=== PATIENT | male | born 1955 | race Caucasian/White ===

== ENCOUNTER → 2019-12-07 | Outpatient (CLI) | payer OTHER, MEDICARE ==
[~2019-12-07] MED LIST: ADULT LOW DOSE81 MG PO; ASA81BEC PO; ASPIRIN EC81 M1 PO; ASPIRIN325; CARDURA XL4 MG PO; CARDURA1 MG PO; CARDURA4 MG PO; CARVEDILOL6.25 M1 PO; CHILDREN'S ASPI81 M1 PO; COREG6.25 MG PO; CRESTOR10 MG PO; EFFIENT10 MG PO; FISH OIL 1,0001 EAC8 PO; FISH OIL 1,0001 EAC9 PO; FLONASE16 GM NASAL; GLUCOPHAGE1000 MG PO; JANUMET 50-1,01 EACH PO; JANUVIA100 MG PO; LISINOPRIL-HCT1 EAC2 PO; LISINOPRIL20 MG PO; LISINOPRIL40 MG PO; PRAVASTATIN SOD80 MG PO; TRICOR145 MG PO; TRIGLIDE160 MG PO; XARELTO1 EACH PO; XARELTO15 MG PO
== END ==
LOC: SJCVCIMAG 08:37
PROVIDERS: ATTEND Internal Medicine Cardiovascular Disease
DX: I44.0 Atrioventricular block, first degree (principal); I25.10 Atherosclerotic heart disease of native coronary artery without angina pectoris; I10 Essential (primary) hypertension; E78.00 Pure hypercholesterolemia, unspecified; E78.5 Hyperlipidemia, unspecified; E11.9 Type 2 diabetes mellitus without complications; Z87.891 Personal history of nicotine dependence; Z79.82 Long term (current) use of aspirin; Z79.01 Long term (current) use of anticoagulants; Z79.899 Other long term (current) drug therapy; Z98.61 Coronary angioplasty status

== ENCOUNTER → 2019-12-11 | Outpatient (CLI) | payer OTHER, MEDICARE ==
[~2019-12-11] VITALS: Ht 175.3 cm; Wt 99.8 kg
[~2019-12-11] MED LIST changes: +METFORMIN HCL500 M3 PO
[2019-12-11 07:16] VITALS: BP 125/65
[2019-12-11 07:47] LABS: HEMATOCRIT 35.2 % (42.0-52.0); HEMOGLOBIN 11.9 gm/dL (14.0-18.0); MCH 31.2 pg (26.0-34.0); MCHC 33.8 g/dL (28.0-37.0); MCV 92.2 fL (80.0-100.0); RBC 3.82 mil/uL (4.50-6.00); RDW 13.8 % (10.5-14.5); WBC 4.4 thou/uL (4.0-11.0)
[2019-12-11 07:58] LABS: CALCIUM 9.3 mg/dL (8.5-10.1); CREATININE 1.7 mg/dL (0.7-1.3); POTASSIUM 4.3 mmol/L (3.5-5.1)
--- NOTE | 2019-12-11 13:54 | CATHLAB ---
[facility] [place] [address] INVASIVE PROCEDURE REPORT Name: ARNALDO STANFORD Room #: REG MICHELA GoldbergJean ClaudeDee DeeJean Claude#: [id number] Admission: 12/11/19 Attend Phys: Ad Cordero MD Discharge: Date of : 53 Report #: [id number] THIS REPORT FOR: cc: Andrea Toscano James A. DO Park, Jin S. MD ~ APPROVED REPORT Study performed: 12/11/2019 07:57:37 Patient Details Patient Status: Out-Patient Room #: The patient is a 64 year-old male Event Personnel Ad Cordero [employer] Heater, Tab Rapp RN RN, Kylie Mora RTR Scrub, Rukhsana Howell RTR, BRITTANY Scrub, Melissa Brian Monitor Procedures Performed Art Access - R femoral artery* Left Heart Cath w/or w/o Coronaries [id number] [facility] Hemostasis with Manual pressure 05564 Initial Mod Sed Same Phys/QHP Gr5y [id number] 02465 Mod Sed Same Phys/QHP Ea 247573 Indication Dyspnea, Positive stress test, Chest pain Risk Factors Hypercholesterolemia, Coronary Artery DiseaseHypertension, Diabetes Previous Procedures/Diagnoses Previous PCI, Previous AK Procedure Narrative The Right Groin^ was infiltrated with 1% Lidocaine subcutaneous anesthesia. A PINNACLE 4FR Sheath #[id number] sheath was inserted into the RFA^. Coronary angiography was performed using coronary diagnostic catheters. The right coronary system was accessed and visualized with a 3DRC catheter. The left coronary system was accessed and visualized with a JL4 catheter. The patient tolerated the procedure well and there were no complications associated with the procedure. There was no hematoma. [facility] [address] [place] [address] INVASIVE PROCEDURE REPORT Name: ARNALDO STANFORD Room #: REG [facility]#: [id number] Admission: 12/11/19 Attend Phys: Ad Cordero MD Discharge: Date of : 53 Report #: [id number] Intraoperative Conscious Sedation Sedation start time: 841 Case end Time: 914 Fentanyl 50 mcg Versed 1 mg Fluoro Time: 3.10 minutes Dose: DAP 4003.00 cGycm2 1113 mGy Contrast Type and Amount: Visipaque 55 ml Coronary Angiography The patient's coronary anatomy is right dominant. Diagnostic Cath Left Main The left main artery has a severe occlusion at the distal bifurcation involving the LAD and left circumflex arteries, 70%. LAD The LAD has a borderline stenosis in the proximal segment. The mid and distal segments have no flow-limiting lesions. Diagonal 1 Has a early takeoff from the LAD. There is a chronic occlusion and the distal segment is filled via collateral circulation. Circumflex There are stents in the proximal segment of the left circumflex artery extending into OM1. The stents are patent with mild restenosis. OM1 This is a moderate-sized caliber vessel, supplies several branches as it supplies the inferolateral segment. This vessel is patent with no flow-limiting lesions. Right Coronary The RCA is chronically occluded. The distal branches are filled via collateral circulation. Left Ventriculography Left Ventriculography was not performed. Ejection Fraction was 55-60% based off patient's Nuclear Cardiac Stress Test. An LVEDP was measured and there is no gradient across the outflow tract. Hemodynamics The aortic pressure is 100/54 mmHg with a mean of 74 mmHg. The left ventricular pressure is 127/11 mmHg with a mean of mmHg. The left ventricular end diastolic pressure is 18 mmHg. Conclusion 1. Severe disease in the distal left main artery bifurcation involving the ostium of the LAD and left circumflex arteries. 2. Chronic occluded RCA with distal collaterals. 3. Chronically occluded first diagonal artery with distal [facility] [address] [place] [address] INVASIVE PROCEDURE REPORT Name: ARNALDO STANFORD Room #: REG [facility]#: [id number] Admission: 12/11/19 Attend Phys: Ad Cordero MD Discharge: Date of : 53 Report #: [id number] collaterals. 4. Normal LV systolic function. 5. Recommend CV surgical consultation. <ELECTRONICALLY SIGNED> By: Ad Cordero MD 12/11/19 1353 1353 1353 Ad Cordero MD /YAHIR
--- NOTE | 2019-12-14 12:54 | HC ---
[facility] [place] [address] CONSULTATION Name: ARNALDO STANFORD Room #: REG [facility]#: [id number] Admission: 12/11/19 Attend Phys: Ad Cordero MD Discharge: Date of : 53 Report #: [id number] THIS REPORT FOR: cc: Andrea Toscano,Alessandro Lela MD ~ CC: Andrea Cordero DATE OF SERVICE: 12/11/2019 We were asked by Dr. Cordero to see the patient. HISTORY OF PRESENT ILLNESS: The patient is a 64-year-old with exertional angina. The patient states that he has chest pain when he climbs stairs or exerts himself too much. The patient states that these symptoms are similar to approximately 6 years ago when stents were placed. Cardiac catheterization today demonstrates a total occlusion of the right coronary artery with a distal left main stenosis that approaches 70%, ventriculogram was not done. The patient has had a cardiac echo recently that showed an ejection fraction of 60% with a mild aortic stenosis with a mean gradient of 15 and a peak of 24 mmHg, aortic valve area calculated at 1.56 cm2. PAST MEDICAL HISTORY: Significant for diabetes mellitus, hyperlipidemia, recurrent pulmonary embolism, chronically anticoagulated on Xarelto and obstructive sleep apnea. MEDICATIONS AT HOME: Includes aspirin, Coreg, Cardura, fenofibrate, fish oil, lisinopril, metformin, pravastatin, Xarelto, Januvia. SOCIAL HISTORY: The patient is . Former pipe and cigar smoker, does use alcohol socially. FAMILY HISTORY: Negative for clotting disorder. REVIEW OF SYSTEMS: GENERAL: No change in weight. Does have fatigue with exertion. EYES: No recent vision change. ENT: No hearing loss. No sinus problems. RESPIRATORY: Denies specific shortness of breath or cough, is on CPAP at night. CARDIAC: As mentioned, exertional angina. No rest symptoms. This has been slowly getting worse over the last few months. GASTROINTESTINAL: No nausea, vomiting, blood. GENITOURINARY: No urgency, frequency, blood. MUSCULOSKELETAL: No bone or joint pain. [facility] [address] [place] [address] CONSULTATION Name: ARNALDO STANFORD Room #: REG [facility]#: [id number] Admission: 12/11/19 Attend Phys: Ad Cordero MD Discharge: Date of : 53 Report #: [id number] SKIN: No rash or infection. NEUROLOGIC: No motor or sensory dysfunction. HEMATOLOGIC: No bruising or bleeding. ENDOCRINE: No goiter or tremor. PHYSICAL EXAMINATION: VITAL SIGNS: Blood pressure 140/67, heart rate 60, sinus. HEENT: No scleral icterus, no arcus. NECK: No mass, no bruit. CHEST: Clear to auscultation. HEART: Rhythm regular. I do not hear a murmur. ABDOMEN: Soft. No mass. No tenderness. EXTREMITIES: No clubbing, cyanosis or edema. VASCULAR: 2+ dorsalis pedis pulses. SKIN: No infection or rash. NEUROLOGIC: No motor or sensory dysfunction. PSYCHIATRIC: Oriented x3, appropriate. GENERAL: In general the patient is I would describe as an overweight mesomorph. ASSESSMENT: Left main coronary artery disease with total right coronary occlusion and good ventricular function, mild aortic stenosis. I have discussed the case with Dr. Cordero. We have recommended coronary artery bypass surgery. Risks and details were discussed with the patient and . Options and alternatives were reviewed. Risks include but are not limited to bleeding, infection, anesthesia risks, heart and lung problems, stroke and . The aortic valve problem is mild now and could be addressed with transcatheter aortic valve replacement later if this becomes symptomatic. The patient understands all of these recommendations and agrees with this approach. We will try to complete the preoperative studies and schedule surgery. Thank you for the consult. <ELECTRONICALLY SIGNED> By: Alessandro Adler MD 12/14/19 1254 0956 1014 Alessandro Adler MD /nt
== END | disposition home or self-care (01) ==
LOC: CATH 06:21
PROVIDERS: ATTEND Internal Medicine Cardiovascular Disease
DX: R07.9 Chest pain, unspecified (principal); R94.39 Abnormal result of other cardiovascular function study; I25.10 Atherosclerotic heart disease of native coronary artery without angina pectoris; I25.82 Chronic total occlusion of coronary artery; I35.0 Nonrheumatic aortic (valve) stenosis; E11.9 Type 2 diabetes mellitus without complications; E78.5 Hyperlipidemia, unspecified; G47.30 Sleep apnea, unspecified; Z86.711 Personal history of pulmonary embolism; Z79.01 Long term (current) use of anticoagulants; Z79.899 Other long term (current) drug therapy

== ENCOUNTER → 2019-12-14 | Outpatient (CLI) | payer OTHER, MEDICARE ==
[~2019-12-14] MED LIST changes: -METFORMIN HCL500 M3 PO
== END ==
LOC: SJCVC 09:57
PROVIDERS: ATTEND Internal Medicine Cardiovascular Disease
DX: I25.10 Atherosclerotic heart disease of native coronary artery without angina pectoris (principal)

== ENCOUNTER → 2019-12-15 | Outpatient (CLI) | payer OTHER, MEDICARE | LOC: LAB 07:32 | PROVIDERS: ATTEND Student in an Organized Health Care Education/Training Program | DX: Z01.812 Encounter for preprocedural laboratory examination (principal); Z11.59 Encounter for screening for other viral diseases ==

== ENCOUNTER → 2019-12-15 | Outpatient (CLI) | payer OTHER, MEDICARE | LOC: SJCVCIMAG 08:15 | PROVIDERS: ATTEND Surgery Vascular Surgery | DX: Z01.818 Encounter for other preprocedural examination (principal); I65.23 Occlusion and stenosis of bilateral carotid arteries ==

== ENCOUNTER 2019-12-20 06:03 | Inpatient (IN) | payer OTHER, MEDICARE ==
[2019-12-15 13:03] LABS: URINE BILIRUBIN NEGATIVE (Negative); URINE BLOOD NEGATIVE (Negative); URINE CLARITY CLEAR; URINE COLOR YELLOW; URINE GLUCOSE-RANDOM* NEGATIVE (Negative); URINE KETONES NEGATIVE (Negative); URINE LEUKOCYTES-REFLEX NEGATIVE (Negative); URINE NITRITE-REFLEX NEGATIVE (Negative); URINE PROTEIN (DIPSTICK) NEGATIVE (Negative)
[2019-12-15 13:13] LABS: ABSOLUTE NEUTROPHILS 2.9 thou/uL (1.4-8.2); BASOPHILS 1.1 % (0.0-2.0); HEMATOCRIT 34.2 % (42.0-52.0); HEMOGLOBIN 11.9 gm/dL (14.0-18.0); LYMPHOCYTES 17.5 % (24.0-44.0); MCH 32.6 pg (26.0-34.0); MCHC 34.8 g/dL (28.0-37.0); MCV 93.8 fL (80.0-100.0); MONOCYTES 11.1 % (1.0-8.0); PLATELET COUNT 311 thou/uL (150-400); POLYS 68.3 % (36.0-66.0); RBC 3.65 mil/uL (4.50-6.00); RDW 13.6 % (10.5-14.5); WBC 4.2 thou/uL (4.0-11.0)
[2019-12-15 13:15] LABS: INR 1.3; PROTIME 13.5 Seconds (9.3-11.4)
[2019-12-15 13:19] LABS: ALBUMIN 4.2 g/dL (3.4-5.0); CALCIUM 9.5 mg/dL (8.5-10.1); CREATININE 1.5 mg/dL (0.7-1.3); POTASSIUM 4.7 mmol/L (3.5-5.1); TOTAL BILIRUBIN 0.4 mg/dL (0.2-1.0); TOTAL PROTEIN 7.7 g/dL (6.4-8.2)
[2019-12-16 05:07] LABS: GLYCOHEMOGLOBIN (HGB A1C) 6.5 % (4.8-5.6)
[~2019-12-20] VITALS: Ht 172.7 cm; Wt 102.4 kg
[2019-12-20] VITALS (15 sets, daily range): BP systolic 103–128; BP diastolic 55–71
[2019-12-20 12:39] LABS: HEMATOCRIT 24.1 % (42.0-52.0); MCH 30.1 pg (26.0-34.0); MCHC 33.5 g/dL (28.0-37.0); MCV 89.9 fL (80.0-100.0); RBC 2.68 mil/uL (4.50-6.00); RDW 13.5 % (10.5-14.5); WBC 4.9 thou/uL (4.0-11.0)
[2019-12-20 12:43] LABS: HEMOGLOBIN 8.1 gm/dL (14.0-18.0)
[2019-12-20 12:53] LABS: APTT 30.9 Seconds (24.5-32.8); FIBRINOGEN 142.2 mg/dL (210-360); PROTIME 17.3 Seconds (9.3-11.4)
[2019-12-20 12:58] LABS: INR 1.7
[2019-12-20 13:34] LABS: POC BE -3 mmol/L (-2.0 to +3.0); POC CA IONIZED 4.6 mg/dL (4.5-5.3); POC GLUCOSE 177 mg/dL (70-99); POC HEMOGLOBIN 8.5 g/dL (14.0-18.0); POC POTASSIUM 5.2 mmol/L (3.5-5.1); POC SODIUM 132 mmol/L (136-145); POC pCO2 37.6 mmHg (35.0-45.0); POC pH 7.375 (7.360-7.450)
[2019-12-20 13:34] LABS: POC BE -3 mmol/L (-2.0 to +3.0); POC GLUCOSE 170 mg/dL (70-99); POC HCO3 22.7 mmol/L (22.0-26.0); POC HEMOGLOBIN 9.9 g/dL (14.0-18.0); POC SODIUM 136 mmol/L (136-145); POC pCO2 40.3 mmHg (35.0-45.0); POC pH 7.359 (7.360-7.450)
[2019-12-20 13:34] LABS: POC BE -5 mmol/L (-2.0 to +3.0); POC CA IONIZED 5.2 mg/dL (4.5-5.3); POC GLUCOSE 181 mg/dL (70-99); POC HCO3 20.9 mmol/L (22.0-26.0); POC HEMOGLOBIN 8.2 g/dL (14.0-18.0); POC POTASSIUM 4.6 mmol/L (3.5-5.1); POC SODIUM 137 mmol/L (136-145); POC pCO2 38.6 mmHg (35.0-45.0); POC pH 7.342 (7.360-7.450)
[2019-12-20 13:34] LABS: POC BE -2 mmol/L (-2.0 to +3.0); POC GLUCOSE 145 mg/dL (70-99); POC HCO3 23.3 mmol/L (22.0-26.0); POC HEMOGLOBIN 10.2 g/dL (14.0-18.0); POC POTASSIUM 4.8 mmol/L (3.5-5.1); POC SODIUM 137 mmol/L (136-145); POC pCO2 38.8 mmHg (35.0-45.0); POC pH 7.386 (7.360-7.450)
[2019-12-20 13:35] LABS: POC BE -5 mmol/L (-2.0 to +3.0); POC CA IONIZED 4.8 mg/dL (4.5-5.3); POC GLUCOSE 137 mg/dL (70-99); POC HCO3 21.1 mmol/L (22.0-26.0); POC HEMOGLOBIN 8.8 g/dL (14.0-18.0); POC SODIUM 140 mmol/L (136-145); POC pCO2 39.1 mmHg (35.0-45.0); POC pH 7.341 (7.360-7.450)
[2019-12-20 13:35] LABS: POC BE -4 mmol/L (-2.0 to +3.0); POC CA IONIZED 4.8 mg/dL (4.5-5.3); POC GLUCOSE 198 mg/dL (70-99); POC HCO3 21.4 mmol/L (22.0-26.0); POC HEMOGLOBIN 8.8 g/dL (14.0-18.0); POC SODIUM 134 mmol/L (136-145); POC pCO2 39.7 mmHg (35.0-45.0); POC pH 7.339 (7.360-7.450)
[2019-12-20 13:35] LABS: POC BE -2 mmol/L (-2.0 to +3.0); POC CA IONIZED 4.6 mg/dL (4.5-5.3); POC GLUCOSE 199 mg/dL (70-99); POC HCO3 23.7 mmol/L (22.0-26.0); POC HEMOGLOBIN 8.8 g/dL (14.0-18.0); POC POTASSIUM 4.8 mmol/L (3.5-5.1); POC SODIUM 137 mmol/L (136-145); POC pCO2 40.7 mmHg (35.0-45.0); POC pH 7.374 (7.360-7.450)
[2019-12-20 13:59] LABS: HEMATOCRIT 27.1 % (42.0-52.0); HEMOGLOBIN 9.2 gm/dL (14.0-18.0); MCH 30.4 pg (26.0-34.0); MCHC 34.1 g/dL (28.0-37.0); MCV 89.2 fL (80.0-100.0); RBC 3.04 mil/uL (4.50-6.00); RDW 13.4 % (10.5-14.5)
[2019-12-20 14:09] LABS: CALCIUM 7.6 mg/dL (8.5-10.1); CREATININE 1.4 mg/dL (0.7-1.3); POTASSIUM 4.3 mmol/L (3.5-5.1)
[2019-12-20 14:18] LABS: APTT 26.4 Seconds (24.5-32.8); INR 1.2; PROTIME 12.8 Seconds (9.3-11.4)
[2019-12-20 14:44] LABS: BE(vivo) -4.5 mmol/L (-2 to +3); HCO3 20.6 mmol/L (22.0-26.0); PCO2 37.8 mmHg (35.0-45.0); PO2 151.3 mmHg (80.0-100.0); pH 7.354 (7.360-7.450); sO2 98.9 % (92.0-98.0)
--- NOTE | 2019-12-20 16:45 | O ---
[facility] [place] [address] OPERATIVE REPORT Name: ARNALDO STANFORD Room #: 250-P ADM IN M.R.#: [id number] Admission: 12/20/19 Attend Phys: Alessandro Adler MD Discharge: Date of : 53 Report #: [id number] THIS REPORT FOR: cc: Andrea Toscano,Alessandro Leal MD ~ CC: Andrea Adler DATE OF SERVICE: 12/20/2019 PREOPERATIVE DIAGNOSIS: Coronary artery disease. POSTOPERATIVE DIAGNOSIS: Coronary artery disease. OPERATION: Coronary artery bypass x 3 including left internal mammary artery to left anterior descending artery, saphenous vein to marginal and saphenous vein to posterior descending and endoscopic harvest, left greater saphenous vein. SURGEON: Alessandro Adler MD DESIGN SPECIALIST: BASIM Banks. ANESTHESIA: General. INDICATIONS: The patient is a 64-year-old with coronary artery disease, Dr. Cordero catheterized the patient and found high-grade left main equivalent along with a total occlusion of the right coronary artery. Left ventricular function is satisfactory. FINDINGS AND TECHNIQUE: After general anesthesia was established, saphenous vein was harvested and prepared for use as a conduit. Exposure was obtained through median sternotomy. Left internal mammary artery was harvested from chest wall. Pericardial well was made. Cannulation sutures were placed. Heparin was given. Aorta was cannulated. Right atrium was cannulated. Cardioplegia needle was positioned in the aortic root. Retrograde cardioplegic catheter was placed in coronary sinus. Cardiopulmonary bypass was established. Aorta was cross clamped. Antegrade and retrograde cardioplegia were given. Ice was poured into the pericardial well. The heart was stopped. During electromechanical arrest, the distal anastomoses were performed and end-to-side anastomosis was made between vein and the posterior descending artery. This anatomy was a right coronary that had an early PDA takeoff that coursed along the acute margin towards the distal septum. This was a 1.3 mm vessel and it had a significant amount of collateral blood flow. [facility] [address] [place] [address] OPERATIVE REPORT Name: ARNALDO STANFORD Room #: 250-P [facility] IN M.R.#: [id number] Admission: 12/20/19 Attend Phys: Alessandro Adler MD Discharge: Date of : 53 Report #: [id number] Cold cardioplegia was given. A separate segment of vein was sewn in end-to-side fashion to the large marginal artery. This was a 1.8 mm vessel, but it was very thick walled. Cold cardioplegia was given. Left internal mammary artery was sewn in end-to-side fashion to left anterior descending artery. The LAD was a 1.6 mm vessel and once again it was very thick wall. The anastomosis was checked with the temperature technique and the Doppler. Cold cardioplegia was given. Two proximal anastomoses were performed. When these were complete, warm retrograde cardioplegia was given followed by warm continuous blood to the coronary sinus. When this infusion was complete, the crossclamp was removed, de-airing maneuvers were performed. The anastomoses were inspected and found to be satisfactory. As the patient warmed, nice cardiac activity resumed, chest tubes and pacing wires were placed, a marker was placed around the proximal anastomoses. When the patient was warm, he was weaned from cardiopulmonary bypass. Venous cannula was removed. Protamine was given, the aortic cannula was removed. Flows were measured in the bypass grafts. When hemostasis was satisfactory, chest was irrigated with antibiotic solution and closed in the usual fashion. The patient was taken to the Intensive Care Unit in good condition having tolerated the procedure well. All counts reported as correct. <ELECTRONICALLY SIGNED> By: Alessandro Adler MD 12/20/19 1645 1611 1622 Alessandro Adler MD /nt
[2019-12-20 17:37] LABS: PCO2 35.6 mmHg (35.0-45.0); PO2 116.5 mmHg (80.0-100.0); pH 7.346 (7.360-7.450); sO2 98.1 % (92.0-98.0)
[2019-12-20 18:50] LABS: CREATININE 1.5 mg/dL (0.7-1.3); POTASSIUM 5.7 mmol/L (3.5-5.1)
[2019-12-21] VITALS (12 sets, daily range): BP systolic 109–149; BP diastolic 56–77
[2019-12-21 05:26] LABS: HEMATOCRIT 29.5 % (42.0-52.0); HEMOGLOBIN 10.1 gm/dL (14.0-18.0); MCH 31.8 pg (26.0-34.0); MCHC 34.4 g/dL (28.0-37.0); MCV 92.5 fL (80.0-100.0); RBC 3.19 mil/uL (4.50-6.00); RDW 13.5 % (10.5-14.5); WBC 8.2 thou/uL (4.0-11.0)
[2019-12-21 05:32] LABS: CREATININE 1.5 mg/dL (0.7-1.3); MAGNESIUM 2.1 mg/dL (1.8-2.4)
[2019-12-21 05:45] LABS: POTASSIUM 4.3 mmol/L (3.5-5.1)
--- NOTE | 2019-12-21 07:39 | EKG ---
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 : 1955 Requested By: Vivek Martinez Order Number: [id number] MD: Theodore Dorsey Measurements Intervals [place] Rate: 66 P: -76 NE: 241 QRS: -1 QRSD: 94 T: 44 QT: 398 QTc: 417 Interpretive Statements Sinus or ectopic atrial rhythm Prolonged NE interval Diffuse ST segment elevation, consider pericarditis Compared to ECG 12/20/2019 14:35:17 ST segment elevation is more prominent Electronically Signed On 12-21-2019 7:39:00 CDT by Theodore Dorsey [email or web address] <ELECTRONICALLY SIGNED> By: Theodore Dorsey MD, FAC [birth year]/1939 1 1 Theodore Dorsey MD, [facility] /EPI
--- NOTE | 2019-12-21 07:49 | EKG ---
[facility] [place] [address] ELECTROCARDIOGRAM REPORT Name: ARNALDO STANFORD Room #: 250-P ADM IN M.R.#: [id number] Admission: 12/20/19 Attend Phys: Alessandro Adler MD Discharge: Date of : 53 Report #: [id number] THIS REPORT FOR: cc: Andrea Toscano James A. DO Lundgren, Craig H. MD 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 NICE : 1955 Requested By: Vivek Martinez Order Number: [id number] MD: Theodore Dorsey Measurements Intervals [place] Rate: 73 P: -66 MA: 236 QRS: -8 QRSD: 92 T: 66 QT: 413 QTc: 456 Interpretive Statements Sinus rhythm Prolonged MA interval Minimal diffuse ST elevation, consider pericarditis Compared to ECG 03/26/2014 08:57:[address] segment elevation is now present Electronically Signed On 12-21-2019 7:49:23 CDT by Theodore Dorsey [email or web address] <ELECTRONICALLY SIGNED> By: Theodore Dorsey MD, FAC 12/21/19 0749 1435 1435 Theodore Dorsey MD, [facility] /EPI
[2019-12-21 13:46] LABS: BE(vivo) -5.8 mmol/L (-2 to +3); HCO3 18.9 mmol/L (22.0-26.0); PCO2 34.2 mmHg (35.0-45.0); PO2 70.3 mmHg (80.0-100.0); pH 7.361 (7.360-7.450); sO2 93.7 % (92.0-98.0)
[2019-12-22 06:50] LABS: HEMOGLOBIN 10.3 gm/dL (14.0-18.0); MCH 30.5 pg (26.0-34.0); MCHC 34.2 g/dL (28.0-37.0); MCV 89.3 fL (80.0-100.0); RBC 3.36 mil/uL (4.50-6.00); RDW 13.7 % (10.5-14.5); WBC 10.9 thou/uL (4.0-11.0)
[2019-12-22 07:03] LABS: CALCIUM 8.4 mg/dL (8.5-10.1); CREATININE 1.5 mg/dL (0.7-1.3); POTASSIUM 4.3 mmol/L (3.5-5.1)
[2019-12-22 08:00] VITALS: BP 136/62
[2019-12-22 10:56] VITALS: BP 120/56
[2019-12-22 12:32] VITALS: BP 115/50
[2019-12-22 16:27] VITALS: BP 101/54
[2019-12-22 20:24] VITALS: BP 137/48
[2019-12-23 03:17] LABS: HEMATOCRIT 30.9 % (42.0-52.0); HEMOGLOBIN 10.3 gm/dL (14.0-18.0)
[2019-12-23 03:46] LABS: CALCIUM 8.7 mg/dL (8.5-10.1); CREATININE 1.5 mg/dL (0.7-1.3); POTASSIUM 4.5 mmol/L (3.5-5.1)
[2019-12-23 04:26] VITALS: BP 152/68
[2019-12-23 07:21] VITALS: BP 124/73
[2019-12-23 11:32] VITALS: BP 118/55
[2019-12-23 15:29] VITALS: BP 138/52
[2019-12-23 20:30] VITALS: BP 122/52
[2019-12-24 04:50] VITALS: BP 116/57
[2019-12-24 05:58] LABS: ABSOLUTE NEUTROPHILS 4.3 thou/uL (1.4-8.2); BASOPHILS 0.4 % (0.0-2.0); EOSINOPHILS 1.8 % (0.0-3.0); HEMATOCRIT 27.6 % (42.0-52.0); HEMOGLOBIN 9.5 gm/dL (14.0-18.0); LYMPHOCYTES 11.1 % (24.0-44.0); MCH 30.9 pg (26.0-34.0); MCHC 34.2 g/dL (28.0-37.0); MCV 90.2 fL (80.0-100.0); MONOCYTES 9.3 % (1.0-8.0); PLATELET COUNT 244 thou/uL (150-400); POLYS 77.4 % (36.0-66.0); RBC 3.06 mil/uL (4.50-6.00); RDW 13.5 % (10.5-14.5); WBC 5.5 thou/uL (4.0-11.0)
[2019-12-24 06:26] LABS: ALBUMIN 2.7 g/dL (3.4-5.0); ANION GAP 9 mmol/L (7-16); BUN 30 mg/dL (7-18); CALCIUM 8.9 mg/dL (8.5-10.1); CHLORIDE 105 mmol/L (98-107); CO2 26 mmol/L (21-32); CREATININE 1.3 mg/dL (0.7-1.3); DIRECT BILIRUBIN < 0.1 mg/dL (<0.1-0.2); GLUCOSE 145 mg/dL (74-106); MAGNESIUM 2.1 mg/dL (1.8-2.4); PHOSPHORUS 2.2 mg/dL (2.5-4.9); POTASSIUM 4.4 mmol/L (3.5-5.1); SGOT 20 U/L (15-37); SGPT 20 U/L (30-65); SODIUM 140 mmol/L (136-145); TOTAL BILIRUBIN 0.4 mg/dL (0.2-1.0); TOTAL PROTEIN 6.5 g/dL (6.4-8.2)
[2019-12-24 07:27] VITALS: BP 101/61
[2019-12-24 11:35] VITALS: BP 124/56
[2019-12-24 15:08] VITALS: BP 103/57
[2019-12-24 19:43] VITALS: BP 118/58
[2019-12-25 04:38] VITALS: BP 119/42
[2019-12-25 04:45] VITALS: BP 108/57
[2019-12-25 06:00] LABS: CALCIUM 9.1 mg/dL (8.5-10.1); CREATININE 1.5 mg/dL (0.7-1.3); POTASSIUM 4.6 mmol/L (3.5-5.1)
[2019-12-25 06:04] LABS: HEMATOCRIT 27.7 % (42.0-52.0); HEMOGLOBIN 9.5 gm/dL (14.0-18.0); MCH 31.7 pg (26.0-34.0); MCHC 34.5 g/dL (28.0-37.0); MCV 91.9 fL (80.0-100.0); PLATELET COUNT 273 thou/uL (150-400); RBC 3.01 mil/uL (4.50-6.00); RDW 13.4 % (10.5-14.5); WBC 4.5 thou/uL (4.0-11.0)
[2019-12-25 07:10] VITALS: BP 107/61
--- NOTE | 2019-12-25 09:06 | EKG ---
[facility] [address] ELECTROCARDIOGRAM REPORT Name: ARNALDO STANFORD Room #: 200-I ADM IN M.R.#: [id number] Admission: 12/20/19 Attend Phys: Alessandro Adler MD Discharge: Date of : 53 Report #: [id number] THIS REPORT FOR: cc: Andrea Toscano James A. DO Lundgren, Craig H. MD [facility] ~ THIS REPORT FOR: //name// 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 NICE : 1955 Requested By: Vivek Martinez Order Number: [id number] MD: Theodore Dorsey Measurements Intervals [place] Rate: 82 P: -58 MS: 220 QRS: -2 QRSD: 92 T: 86 QT: 434 QTc: 507 Interpretive Statements Sinus or ectopic atrial rhythm Prolonged MS interval Diffuse ST segment elevation, consider pericarditis Prolonged QT interval Compared to ECG 12/21/2019 07:32:54 Prolonged QT interval now present Electronically Signed On 12-25-2019 9:06:38 CDT by Theodore Dorsey [email or web address] <ELECTRONICALLY SIGNED> By: Theodore Dorsey MD, [facility] 12/25/19905 0 0 Theodore Dorsey MD, [facility] /EPI
[2019-12-25] MEDS ORDERED: IRON325 PO (09:28)
[2019-12-25 11:32] VITALS: BP 107/61
[2019-12-25 11:34] LABS: ABSOLUTE NEUTROPHILS 2.9 thou/uL (1.4-8.2)
[2019-12-25 11:35] LABS: ANISOCYTOSIS SLIGHT; POIKILOCYTOSIS SLIGHT
[2019-12-25 12:00] VITALS: BP 117/61
[2019-12-25 12:55] VITALS: BP 107/61
== END 2019-12-25 14:41 | disposition home or self-care (01) | DRG 235 ==
LOC: TBA 06:03 → ICU 06:03 → PRE 08:50 → ICU 14:06 → 2N 12-22 12:11
PROVIDERS: Internal Medicine; Physician Assistant; ADMIT Surgery Vascular Surgery; ATTEND Surgery Vascular Surgery
DX: I25.10 Atherosclerotic heart disease of native coronary artery without angina pectoris (principal); E43 Unspecified severe protein-calorie malnutrition; D62 Acute posthemorrhagic anemia; E78.5 Hyperlipidemia, unspecified; G47.33 Obstructive sleep apnea (adult) (pediatric); N18.3 Chronic kidney disease, stage 3 (moderate); E11.22 Type 2 diabetes mellitus with diabetic chronic kidney disease; K59.00 Constipation, unspecified; Z95.5 Presence of coronary angioplasty implant and graft; Z86.711 Personal history of pulmonary embolism; Z79.01 Long term (current) use of anticoagulants; Z79.899 Other long term (current) drug therapy; Z68.34 Body mass index [BMI] 34.0-34.9, adult
CPT/HCPCS: 10078; 10081; 47000; 47001; 47002; 47297; 48888; 50010; 50249; 50409; 50456; 50498; 50668; 51301; 52131; 52259; 52287; 52314; 53327; 53358; 54118; 56455; 56524; 56525; 56526; 56527; 56528; 56531; 56534; 56668; 56719; 56760; 56898; 57093; 57167; 62110; 62950

== ENCOUNTER → 2020-01-25 | Outpatient (CLI) | payer OTHER, MEDICARE ==
[~2020-01-25] MED LIST changes: +IRON325 PO
== END ==
LOC: SJCVC 13:09
PROVIDERS: ATTEND Internal Medicine Cardiovascular Disease
DX: I44.0 Atrioventricular block, first degree (principal); R94.31 Abnormal electrocardiogram [ECG] [EKG]; I25.810 Atherosclerosis of coronary artery bypass graft(s) without angina pectoris; I10 Essential (primary) hypertension; E78.00 Pure hypercholesterolemia, unspecified; R60.9 Edema, unspecified; E11.9 Type 2 diabetes mellitus without complications; E78.5 Hyperlipidemia, unspecified; Z79.82 Long term (current) use of aspirin; Z79.84 Long term (current) use of oral hypoglycemic drugs; Z95.1 Presence of aortocoronary bypass graft; Z79.899 Other long term (current) drug therapy; Z87.891 Personal history of nicotine dependence

== ENCOUNTER → 2020-02-21 | Outpatient (CLI) | payer OTHER, MEDICARE | LOC: SJCVC 11:51 | PROVIDERS: ATTEND Internal Medicine Cardiovascular Disease | DX: E78.00 Pure hypercholesterolemia, unspecified (principal) ==

== ENCOUNTER → 2020-03-25 | Outpatient (CLI) | payer OTHER, MEDICARE | LOC: SJCVCIMAG 07:10 | PROVIDERS: ATTEND Internal Medicine Cardiovascular Disease | DX: I08.0 Rheumatic disorders of both mitral and aortic valves (principal); R94.31 Abnormal electrocardiogram [ECG] [EKG]; I44.0 Atrioventricular block, first degree; I11.9 Hypertensive heart disease without heart failure; E78.00 Pure hypercholesterolemia, unspecified; I25.10 Atherosclerotic heart disease of native coronary artery without angina pectoris; I26.99 Other pulmonary embolism without acute cor pulmonale; E11.9 Type 2 diabetes mellitus without complications; Z95.1 Presence of aortocoronary bypass graft; Z79.82 Long term (current) use of aspirin; Z79.899 Other long term (current) drug therapy; Z87.891 Personal history of nicotine dependence ==

== ENCOUNTER → 2020-10-14 | Outpatient (CLI) | payer OTHER, MEDICARE | LOC: SJCVCIMAG 10:19 | PROVIDERS: ATTEND Internal Medicine Cardiovascular Disease | DX: R00.0 Tachycardia, unspecified (principal); I49.3 Ventricular premature depolarization; I44.39 Other atrioventricular block; R53.83 Other fatigue; R06.00 Dyspnea, unspecified; I25.89 Other forms of chronic ischemic heart disease; I10 Essential (primary) hypertension; E78.00 Pure hypercholesterolemia, unspecified; R60.9 Edema, unspecified; I25.10 Atherosclerotic heart disease of native coronary artery without angina pectoris; I27.82 Chronic pulmonary embolism; E78.5 Hyperlipidemia, unspecified; G47.30 Sleep apnea, unspecified; I35.0 Nonrheumatic aortic (valve) stenosis; Z95.1 Presence of aortocoronary bypass graft; Z98.890 Other specified postprocedural states; Z98.61 Coronary angioplasty status; Z88.8 Allergy status to other drugs, medicaments and biological substances; Z79.01 Long term (current) use of anticoagulants; Z79.82 Long term (current) use of aspirin; Z79.84 Long term (current) use of oral hypoglycemic drugs; Z79.899 Other long term (current) drug therapy; Z87.891 Personal history of nicotine dependence ==

== ENCOUNTER → 2020-12-24 | Outpatient (CLI) | payer OTHER, MEDICARE ==
[~2020-12-24] MED LIST changes: +CARVEDILOL3.125 MG PO; +FLONASE 0.05%50 MCG NASAL; -FLONASE16 GM NASAL; +METFORMIN HCL500 MG PO; +ROSUVASTATIN CA20 MG PO; +VASCEPA1 GM PO; +VITAMIN B-121000 MC2 PO; +XARELTO20 MG PO
== END ==
LOC: LAB 09:56
PROVIDERS: ATTEND Student in an Organized Health Care Education/Training Program
DX: Z01.812 Encounter for preprocedural laboratory examination (principal); Z20.822 Contact with and (suspected) exposure to COVID-19

== ENCOUNTER → 2020-12-25 | Outpatient (CLI) | payer OTHER, MEDICARE ==
[~2020-12-25] VITALS: Ht 175.3 cm; Wt 95.3 kg
--- NOTE | 2020-12-27 08:19 | P ---
[facility] [place] [address] PROCEDURE REPORT Name: ARNALDO STANFORD Room #: REG [facility]#: [id number] Admission: 12/25/20 Attend Phys: Raymon Flores Discharge: Date of : 53 Report #: [id number] THIS REPORT FOR: cc: Andrea Toscano James A. DO McElhinney, Christian C. MD ~ cc: Andrea Toscano DO DATE OF SERVICE: 12/25/2020 PROCEDURE PERFORMED: Colonoscopy with biopsies. HISTORY OF PRESENT ILLNESS: The patient is a 65-year-old male who presents today for screening colonoscopy. He has a family history of colon cancer in his mother. Last colonoscopy was 5 years ago and normal other than diverticulosis. He denies any symptoms. DESCRIPTION OF PROCEDURE: The risks and benefits of the procedure were explained to the patient, those risks including but not limited to bleeding, perforation and the risk of sedation. He understood these risks and gave informed consent. Sedation was given using propofol per anesthesia. Next, a digital rectal exam was initially performed, which was normal. Next, using a standard Olympus colonoscope, the scope was placed in the patient's anus and advanced under direct vision to the cecum. The overall prep was good. The cecum and ileocecal valve were normal in appearance. In the ascending colon, a 4 mm sessile polyp was noted and removed with a cold forceps, otherwise normal. The transverse and descending colon were normal. Multiple diverticula were again noted in the sigmoid colon. No evidence of inflammation. The rectal mucosa was normal. On retroflexion, small nonbleeding internal hemorrhoids were noted. The scope was then withdrawn and the procedure terminated. The patient tolerated the procedure well. IMPRESSION: 1. Small colonic polyp. 2. Sigmoid diverticulosis. 3. Small internal hemorrhoids. 4. Otherwise, normal colonoscopy. RECOMMENDATIONS: 1. Await biopsy results. 2. Repeat colonoscopy in [address] [address] PROCEDURE REPORT Name: RENETTAARNALDO WESTBROOK Room #: [facility] MICHELA Rider#: [id number] Admission: 12/25/20 Attend Phys: Raymon Flores Discharge: Date of : 53 Report #: [id number] Thank you for allowing me to participate in his care. <ELECTRONICALLY SIGNED> By: Raymon Bansal MD 12/27/20 0819 0833 0927 Raymon Bansal MD /nt
== END | disposition home or self-care (01) ==
LOC: GI
PROVIDERS: ATTEND Specialist
DX: Z12.11 Encounter for screening for malignant neoplasm of colon (principal); Z80.0 Family history of malignant neoplasm of digestive organs; K63.5 Polyp of colon; K57.30 Diverticulosis of large intestine without perforation or abscess without bleeding; K64.8 Other hemorrhoids; I10 Essential (primary) hypertension; E11.9 Type 2 diabetes mellitus without complications; E78.00 Pure hypercholesterolemia, unspecified; J45.909 Unspecified asthma, uncomplicated; G47.30 Sleep apnea, unspecified; Z98.890 Other specified postprocedural states; Z79.899 Other long term (current) drug therapy; Z87.891 Personal history of nicotine dependence; Z95.1 Presence of aortocoronary bypass graft; Z87.442 Personal history of urinary calculi
CPT/HCPCS: 62110; 62900

== ENCOUNTER → 2021-04-02 | Outpatient (CLI) | payer OTHER, MEDICARE | LOC: SJCVC 10:20 | PROVIDERS: ATTEND Internal Medicine Cardiovascular Disease | DX: R94.31 Abnormal electrocardiogram [ECG] [EKG] (principal); I44.0 Atrioventricular block, first degree; I25.10 Atherosclerotic heart disease of native coronary artery without angina pectoris; I10 Essential (primary) hypertension; I35.0 Nonrheumatic aortic (valve) stenosis; E78.00 Pure hypercholesterolemia, unspecified; E11.9 Type 2 diabetes mellitus without complications; E78.5 Hyperlipidemia, unspecified; G47.30 Sleep apnea, unspecified; Z88.8 Allergy status to other drugs, medicaments and biological substances; Z79.82 Long term (current) use of aspirin; Z79.84 Long term (current) use of oral hypoglycemic drugs; Z79.899 Other long term (current) drug therapy; Z72.89 Other problems related to lifestyle; Z87.891 Personal history of nicotine dependence ==